=== PATIENT | female | born 1945 | race Caucasian/White ===

== ENCOUNTER 2018-01-23 16:27 | Observation (INO) | payer MEDICARE ==
[~2018-01-23] VITALS: Ht 162.6 cm; Wt 80.0 kg
[2018-01-23 16:35] VITALS: BP 158/81; PULSE 80; RESP 18; TEMP 98.8; O2SAT 98
--- NOTE | 2018-01-23 17:13 | RADRPT ---
EXAM DATE/TIME: 01/23/2018 17:08 [place] COMPARISON: No previous studies available for comparison. INDICATIONS : Chest pain. MEDICAL HISTORY : None. SURGICAL HISTORY : None. ENCOUNTER: Initial ACUITY: 2 days PAIN SCORE: 7/10 LOCATION: middle chest. FINDINGS: PA and lateral views of the chest demonstrate the lungs to be symmetrically aerated without evidence of mass, infiltrate or effusion. The cardiomediastinal contours are unremarkable. Osseous structure s are intact. CONCLUSION: No acute disease. Michael Shin MD on January 23, 2018 at 17:10 Board Certified Radiologist. This report was verified electronically.
[2018-01-23 19:06] LABS: AUTOMATED NEUTROPHIL # 5.6 TH/MM3 (1.8-7.7); BASOPHIL # 0.1 TH/MM3 (0-0.2); EOSINOPHIL # 0.1 TH/MM3 (0-0.4); EOSINOPHIL % 0.8 % (0.0-4.0); HEMATOCRIT 40.7 % (35.0-46.0); HEMOGLOBIN 13.8 GM/DL (11.6-15.3); LYMPH % 29.1 % (9.0-44.0); LYMPHOCYTE # 2.7 TH/MM3 (1.0-4.8); MEAN CORPUSCULAR HEMOGLOBIN 30.6 PG (27.0-34.0); MEAN PLATELET VOLUME 8.4 FL (7.0-11.0); MONO % 8.4 % (0.0-8.0); MONOCYTE # 0.8 TH/MM3 (0-0.9); NEUT % 60.7 % (16.0-70.0); PLATELET COUNT 215 TH/MM3 (150-450); RED BLOOD COUNT 4.52 MIL/MM3 (4.00-5.30); WHITE BLOOD COUNT 9.2 TH/MM3 (4.0-11.0)
[2018-01-23 19:14] LABS: BILIRUBIN, URINE NEG (NEG); BLOOD, URINE SMALL (NEG); GLUCOSE,URINE NEG (NEG); KETONE, URINE NEG (NEG); NITRITE,URINE NEG (NEG); SQUAMOUS EPITHELIAL CELL URINE 1 /hpf (0-5); URINE COLOR LIGHT-YELLOW (YELLW/STRAW); URINE LEUKOCYTE ESTERASE NEG (NEG)
[2018-01-23 19:27] LABS: ALKALINE PHOSPHATASE 90 U/L (45-117); TOTAL BILIRUBIN ADULT 0.6 MG/DL (0.2-1.0); TOTAL PROTEIN 7.9 GM/DL (6.4-8.2)
[2018-01-23 19:28] LABS: ALBUMIN 3.7 GM/DL (3.4-5.0); ALT (GPT) 19 U/L (10-53); AST (GOT) 16 U/L (15-37); BLOOD UREA NITROGEN 17 MG/DL (7-18); CALCIUM 9.4 MG/DL (8.5-10.1); CHLORIDE 110 MEQ/L (98-107); GLOMERULAR FILTRATION RATE 82 ML/MIN (>89); GLUCOSE,RANDOM 96 MG/DL (74-106); SODIUM (NA) 142 MEQ/L (136-145)
[2018-01-23] MEDS ORDERED: LEVO.125 PO (22:20)
[2018-01-23] MEDS ORDERED: TRAZ50TA12 PO (22:20)
[2018-01-23] MEDS ORDERED: XANA1TAB2 PO (22:20)
[2018-01-23] MEDS ORDERED: ACETAMINOPHEN 500 MG CPLT PO PRN (23:30)
[2018-01-23] MEDS ORDERED: ACETAMINOPHEN/HYDROcodone 325 MG/7.5 MG TAB PO PRN (23:30)
[2018-01-23] MEDS ORDERED: SODIUM CHLORIDE 0.9% FLUSH 10 ML FLUSH IV FLUSH PRN (23:30)
[2018-01-23] MEDS ORDERED: MORPHINE SULFATE 4 MG/ML INJ IV PUSH PRN (23:30)
--- NOTE | 2018-01-23 23:37 | PD ---
HPI Chief Complaint: Complaint Time Seen by Provider: 21:25 Travel History International Travel<30 days: No Contact w/Intl Traveler<30days: No Traveled to known affect area: No History of Present Illness HPI 72-year-old female complains of a kidney infection. She reports some pain in the right flank. She believes she also has a pneumonia and is dehydrated. Similar symptoms in the past were diagnosed as pneumonia and he UTI. The symptoms include cough back pain and retrosternal chest pain. She has no history of coronary artery disease. She denies diabetes hypertension hyperlipidemia. The patient does not smoke. Patient also reports urinary frequency. The patient additionally reports chest pain with exertion. Symptom duration has been about 2-3 days. PFSH Past Medical History Thyroid Disease: Yes ("HYPOTHYRODISM") Past Surgical History Abdominal Surgery: Yes ("HERNIA REPAIR") Cholecystectomy: Yes Hysterectomy: Yes Tonsillectomy: Yes Social History Alcohol Use: Yes ("OCC") Tobacco Use: No Substance Use: No Allergies-Medications (Allergen,Severity, Reaction): Coded Allergies: codeine (Unverified Adverse Reaction, Severe, Rash, 01/23/18) Reported Meds & Prescriptions Reported Meds & Active Scripts Active Reported Trazodone (Trazodone HCl) 50 Mg Tab 50 Mg PO HS Xanax (Alprazolam) 1 Mg Tab 1 Mg PO Q6H PRN Synthroid (Levothyroxine Sodium) 125 Mcg Tab 125 Mcg PO DAILY Review of Systems Except as stated in HPI: all other systems reviewed are Neg General / Constitutional: No: Fever Eyes: No: Diploplia Physical Exam Narrative GENERAL: 72 old female pleasant well-nourished well-developed no acute distress Vital Signs Date Time Temp Pulse Resp B/P (MAP) Pulse Ox O2 Delivery O2 Flow Rate FiO2 01/23/18 22:14 73 15 01/23/18 16:35 98.8 80 18 158/81 (106) 98 SKIN: Warm and dry. HEAD: Atraumatic. Normocephalic. EYES: Pupils equal and round. No scleral icterus. No injection or drainage. ENT: No nasal bleeding or discharge. Mucous membranes pink and moist. NECK: Trachea midline. No JVD. CARDIOVASCULAR: Regular rate and rhythm. RESPIRATORY: No accessory muscle use. Clear to auscultation. Breath sounds equal bilaterally. GASTROINTESTINAL: Abdomen soft, non-tender, nondistended. Hepatic and splenic margins not palpable. No flank tenderness to palpation. MUSCULOSKELETAL: Extremities without clubbing, cyanosis, or edema. No obvious deformities. NEUROLOGICAL: Awake and alert. No obvious cranial nerve deficits. Motor grossly within normal limits. Five out of 5 muscle strength in the arms and legs. Normal speech. PSYCHIATRIC: Appropriate mood and affect; insight and judgment normal. Data Data Last Documented VS Vital Signs Date Time Temp Pulse Resp B/P (MAP) Pulse Ox O2 Delivery O2 Flow Rate FiO2 01/23/18 22:14 73 15 01/23/18 16:35 98.8 158/81 (106) 98 Orders Orders Urinalysis - C+S If Indicated (01/23/18 16:42) Complete Blood Count With Diff (01/23/18 16:42) Comprehensive Metabolic Panel (01/23/18 16:42) Chest, Pa & Lat (01/23/18 16:42) Electrocardiogram (01/23/18 ) Troponin I (01/23/18 21:43) Troponin I (01/23/18 22:19) Activity Bed Rest With Brp (01/23/18 23:28) Vital Signs (Adult) Q4H (01/23/18 23:28) Cardiac Rhythm .As Directed (01/23/18:28) Notify Dr: Other .PRN (01/23/18 23:28) Notify DrMani Parameters (01/23/18:28) Resp Oxygen Nasal Cannula (01/23/18 ) Ckmb (Isoenzyme) Profile (01/23/18:28) Ckmb (Isoenzyme) Profile (01/24/18 02:28) Troponin I (01/23/18 23:28) Troponin I (01/24/18 02:28) Electrocardiogram (01/23/18 23:28) Electrocardiogram (01/24/18 02:28) ^ Obtain (01/23/18 23:) Sodium Chloride 0.9% Flush (Ns Flush) (01/23/18 23:30) Sodium Chloride 0.9% Flush (Ns Flush) (01/24/18 09:00) Acetaminophen (Tylenol) (01/23/18 23:30) Acetamin-Hydrocod 325-7.5 Mg ([place] 7.5 (01/23/18 23:30) Morphine Inj (Morphine Inj) (01/23/18 23:30) Pastry Chef / Telemetry LOUISE.Q8H (01/23/18 23:28) Admit Order (Ed Use Only) (01/23/18 23:28) Labs Laboratory Tests Test 01/23/18 16:45 01/23/18 18:18 01/23/18 22:25 Urine Color LIGHT-YELLOW Urine Turbidity CLEAR Urine pH 5.0 Urine Specific [place] 1.009 Urine Protein NEG mg/dL Urine Glucose (UA) NEG mg/dL Urine Ketones NEG mg/dL Urine Occult Blood SMALL Urine Nitrite NEG Urine Bilirubin NEG Urine Urobilinogen LESS THAN 2.0 MG/DL Urine Leukocyte Esterase NEG Urine RBC LESS THAN 1 /hpf Urine WBC LESS THAN 1 /hpf Urine Squamous Epithelial Cells 1 /hpf Microscopic Urinalysis Comment CULT NOT INDICATED White Blood Count 9.2 TH/MM3 Red Blood Count 4.52 MIL/MM3 Hemoglobin 13.8 GM/DL Hematocrit 40.7 % Mean Corpuscular Volume 90.0 FL Mean Corpuscular Hemoglobin 30.6 PG Mean Corpuscular Hemoglobin Concent 34.0 % Red Cell Distribution Width 14.0 % Platelet Count 215 TH/MM3 Mean Platelet Volume 8.4 FL Neutrophils (%) (Auto) 60.7 % Lymphocytes (%) (Auto) 29.1 % Monocytes (%) (Auto) 8.4 % Eosinophils (%) (Auto) 0.8 % Basophils (%) (Auto) 1.0 % Neutrophils # (Auto) 5.6 TH/MM3 Lymphocytes # (Auto) 2.7 TH/MM3 Monocytes # (Auto) 0.8 TH/MM3 Eosinophils # (Auto) 0.1 TH/MM3 Basophils # (Auto) 0.1 TH/MM3 CBC Comment DIFF FINAL Differential Comment Blood Urea Nitrogen 17 MG/DL Creatinine 0.70 MG/DL Random Glucose 96 MG/DL Total Protein 7.9 GM/DL Albumin 3.7 GM/DL Calcium Level 9.4 MG/DL Alkaline Phosphatase 90 U/L Aspartate Amino Transf (AST/SGOT) 16 U/L Alanine Aminotransferase (ALT/SGPT) 19 U/L Total Bilirubin 0.6 MG/DL Sodium Level 142 MEQ/L Potassium Level 3.6 MEQ/L Chloride Level 110 MEQ/L Carbon Dioxide Level 24.0 MEQ/L Anion Gap 8 MEQ/L Estimat Glomerular Filtration Rate 82 ML/MIN Troponin I LESS THAN 0.02 NG/ML MDM Medical Decision Making Medical Screen Exam Complete: Yes Emergency Medical Condition: Yes Medical Record Reviewed: Yes Differential Diagnosis NSTEMI, unstable angina, coronary vasospasm, PE, PTX, aortic dissection, pericarditis, myocarditis, endocarditis, PNA, esophageal disease, aneurysm, musculoskeletal etiologies, anxiety, cocaine/sympathomimetic abuse Narrative Course EKG shows left bundle-branch block pattern with a rate of 80 CBC & BMP Diagram 01/23/18 18:18 Total Protein 7.9, Albumin 3.7, Calcium Level 9.4, Alkaline Phosphatase 90, Aspartate Amino Transf (AST/SGOT) 16, Alanine Aminotransferase (ALT/SGPT) 19, Total Bilirubin 0.6 Troponin < 0.02 UA shows no UTI A chest x-ray shows no acute disease Patient will be kept in the chest pain center for further evaluation Diagnosis Primary Impression: Chest pain Qualified Codes: R07.9 - Chest pain, unspecified Admitting Information Admitting Physician Requests: Observation Emory Talyor MD Jan 23, 2018 23:37
[2018-01-24] VITALS (7 sets, daily range): BP systolic 137–167; BP diastolic 70–79; PULSE 66–77; RESP 16–18; TEMP 98.2–98.9; O2SAT 93–98
[2018-01-24 02:26] LABS: TROPONIN I LESS THAN 0.02 NG/ML (0.02-0.05)
[2018-01-24 05:42] LABS: TROPONIN I LESS THAN 0.02 NG/ML (0.02-0.05)
[2018-01-24] MEDS ORDERED: ONDANSETRON HCL 4 MG/2 ML VIAL IV PUSH PRN (08:00)
[2018-01-24] MEDS ORDERED: NITROGLYCERIN 0.4 MG SL 25 TABS/BTL SL PRN (08:00)
[2018-01-24] MEDS ORDERED: ACETAMINOPHEN 500 MG CPLT PO PRN (08:00)
[2018-01-24] MEDS ORDERED: ALPRAZolam 1 MG TAB PO PRN (08:45)
--- NOTE | 2018-01-24 08:45 | HHI.HP ---
HPI Primary Care Physician Primary Care Physician -[place], [place] Chief Complaint Chest tightness History of Present Illness 72 year old female with history of hypothyroidism and depression presents to ER for further evaluation of chest tightness. Her and her daughter are on visiting [place] until Sunday. They arrived Sunday from [place], [place]. Reports feeling "not herself" and states "I probably shouldn't took trip to [place]." Came to ER for further evaluation of increase urinary frequency, possible dehydration, and chest congestion. Endorses intermittent low grade fever, chills, chest congestion, and nonproductive cough. No dysuria or hematuria. No change in appetite and reports increasing her fluid intake this week. In regards to chest discomfort reports onset Sunday, before leaving to [place]. Location substernal. Characterizes as tightness. Severity mild to moderate. Radiation to right flank. Duration constant. No associated symptoms of nausea, vomiting, dyspnea, and diaphoresis. No known precipitating of relieving factors. Denies similar discomfort in the past. Review of Systems General: No fatigue,weakness, or change in appetite. Reports intermittent low grade fever, chills, and chest congestion since Sunday. HEENT: No KEN[place]ON, no vision changes, no nasal congestion or drainage, no dysphasia CV: Constant chest tightness as stated above. No pressure, palpitations, or dizziness. RESP: Nonproductive cough. No SOB, wheeze, or hemoptysis. GI: No nausea, vomiting, bowel changes, diarrhea, constipation, pain, distention , melena, or blood in the stool. : Current urinary frequency. No dysuria, urgency, or hematuria. History of kidney infection Summer 2016, reports hospitalization x4days. EXT: No lower leg edema, no paraesthesias MS: No injury, trauma, or change in ROM. NEURO: No difficulty with balance, LOC, or motor/sensory deficits PSYCH: History of both anxiety and depression, reports both stable on current medical regimen. SKIN: No rashes, no concerning lesions Past Family Social History Allergies: Coded Allergies: codeine (Unverified Adverse Reaction, Severe, Rash, 01/23/18) Past Medical History Hypothyroidism, depression, anxiety Past Surgical History Cholecystectomy, hysterectomy, tonsillectomy, hernia repair, back surgery Reported Medications Reported Meds & Active Scripts Active Reported Trazodone (Trazodone HCl) 50 Mg Tab 50 Mg PO HS Xanax (Alprazolam) 1 Mg Tab 1 Mg PO Q6H PRN Synthroid (Levothyroxine Sodium) 125 Mcg Tab 125 Mcg PO DAILY Active Ordered Medications Current Medications Medications (Trade) Dose Ordered Sig/Adarsh Route Start Time Stop Time Status Last Admin (NS Flush) 2 ml UNSCH PRN IV FLUSH 01/23/18 23:30 (NS Flush) 2 ml BID IV FLUSH 01/24/18 09:00 ([place] 7.5-325 Mg) 1 tab Q4H PRN PO 01/23/18 23:30 (Morphine Inj) 2 mg Q4H PRN IV PUSH 01/23/18 23:30 (Tylenol) 500 mg Q4H PRN PO 01/24/18 08:00 (Zofran Inj) 4 mg Q6H PRN IV PUSH 01/24/18 08:00 (Nitrostat Sl) 0.4 mg Q5M PRN SL 01/24/18 08:00 (Aspirin) 325 mg DAILY PO 01/24/18 09:00 Family History Noncontributory for early onset cardiovascular disease Social History No known coronary artery disease, hypertension, diabetes, or hyperlipidemia. Former smoker quitting over 30 years ago. Rare alcohol use. Denies any illegal drug use. . Endorses sedentary lifestyle. Past cardiac testing Reports Lexiscan 4-5 years ago reported to be unremarkable with possible "small area of blockage." Cardiac catheterization 10 years ago reported to be normal without any intervention required. Reports being told she has an abnormal EKG in the past. Physical Exam Vital Signs Vital Signs Date Time Temp Pulse Resp B/P (MAP) Pulse Ox O2 Delivery O2 Flow Rate FiO2 01/24/18 07:32 98.3 66 18 167/79 (108) 98 01/24/18 04:58 77 01/24/18 04:37 98.2 70 16 150/71 (97) 93 01/24/18 02:06 68 01/24/18 01:29 98.9 76 16 138/70 (92) 94 01/23/18 22:14 73 15 01/23/18 16:35 98.8 80 18 158/81 (106) 98 Physical Exam GENERAL: Alert WN, WD, NAD, pleasant, mildly obese, elderly female HEAD: NC, AT EYES: Sclera clear, conjunctiva without injection, pupils equal and round ENT: Mucous membranes pink and moist NECK: Supple, no masses, trachea midline CV: RRR, without murmur, rub, gallop, no JVD, S1-S2 no S3-S4. No carotid bruits. Chest wall tender with palpation, easily reproduced discomfort. RESP: Clear lungs throughout bilateral, no crackles, wheeze, rhonchi, symmetrical chest rise, nonlabored, able to speak in full sentences ABD: Soft, NT, ND, no masses, positive bowel tones BACK: Tenderness with light palpation to right upper flank. EXT: Pulses +24, no dependent edema MS: Normal tone 4 extremities, no obvious deformities, full range of motion NEURO: CN II through CN XII grossly intact, motor strength 5/5 PSYCH: A+O 3, flat affect, appropriate speech, mood, insight and judgment SKIN: Normal turgor, normal texture, no lesions, no rashes, even hair distribution Laboratory Laboratory Tests Test 01/23/18 16:45 01/23/18 18:18 01/23/18 22:25 01/24/18 01:48 Urine Color LIGHT-YELLOW Urine Turbidity CLEAR Urine pH 5.0 Urine Specific [place] 1.009 Urine Protein NEG Urine Glucose (UA) NEG Urine Ketones NEG Urine Occult Blood SMALL Urine Nitrite NEG Urine Bilirubin NEG Urine Urobilinogen LESS THAN 2.0 Urine Leukocyte Esterase NEG Urine RBC LESS THAN 1 Urine WBC LESS THAN 1 Urine Squamous Epithelial Cells 1 Microscopic Urinalysis Comment CULT NOT INDICATED White Blood Count 9.2 Red Blood Count 4.52 Hemoglobin 13.8 Hematocrit 40.7 Mean Corpuscular Volume 90.0 Mean Corpuscular Hemoglobin 30.6 Mean Corpuscular Hemoglobin Concent 34.0 Red Cell Distribution Width 14.0 Platelet Count 215 Mean Platelet Volume 8.4 Neutrophils (%) (Auto) 60.7 Lymphocytes (%) (Auto) 29.1 Monocytes (%) (Auto) 8.4 Eosinophils (%) (Auto) 0.8 Basophils (%) (Auto) 1.0 Neutrophils # (Auto) 5.6 Lymphocytes # (Auto) 2.7 Monocytes # (Auto) 0.8 Eosinophils # (Auto) 0.1 Basophils # (Auto) 0.1 CBC Comment DIFF FINAL Differential Comment Blood Urea Nitrogen 17 Creatinine 0.70 Random Glucose 96 Total Protein 7.9 Albumin 3.7 Calcium Level 9.4 Alkaline Phosphatase 90 Aspartate Amino Transf (AST/SGOT) 16 Alanine Aminotransferase (ALT/SGPT) 19 Total Bilirubin 0.6 Sodium Level 142 Potassium Level 3.6 Chloride Level 110 Carbon Dioxide Level 24.0 Anion Gap 8 Estimat Glomerular Filtration Rate 82 Troponin I LESS THAN 0.02 LESS THAN 0.02 Total Creatine Kinase 71 Test 01/24/18 04:50 Total Creatine Kinase 69 Troponin I LESS THAN 0.02 Result Diagram: 01/23/18 1818 01/23/18 1818 Imaging Last 48 hours Impressions Chest X-Ray 01/23/18 1642 Signed Impressions: Service Date/Time: Tuesday, January 23, 2018 17:08 - CONCLUSION: No acute disease. Michael Shin MD Course EKG NSR, Left bundle branch block Caprini VTE Risk Assessment Caprini VTE Risk Assessment: No/Low Risk (score <= 1) Caprini Risk Assessment Model Point Value = 1 Point Value = 2 Point Value = 3 Point Value = 5 Age 41-60 Minor surgery BMI > 25 kg/m2 Swollen legs Varicose veins or History of unexplained or recurrent spontaneous Oral contraceptives or hormone replacement Sepsis (< 1 month) Serious lung disease, including pneumonia (< 1 month) Abnormal pulmonary function Acute myocardial infarction Congestive heart failure (< 1 month) History of inflammatory bowel disease Medical patient at bed rest Age 61-74 Arthroscopic surgery Major open surgery (> 45 min) Laparoscopic surgery (> 45 min) Malignancy Confined to bed (> 72 hours) Immobilizing plaster cast Central venous access Age >= 75 History of VTE Family history of VTE Factor V Leiden Prothrombin [id number] Lupus anticoagulant Anticardiolipin antibodies Elevated serum homocysteine Heparin-induced thrombocytopenia Other congenital or acquired thrombophilia Stroke (< 1 month) Elective arthroplasty Hip, pelvis, or leg fracture Acute spinal cord injury (< 1 month) Prophylaxis Regimen Total Risk Factor Score Risk Level Prophylaxis Regimen 0-1 Low Early ambulation 2 Moderate Order ONE of the following: *Sequential Compression Device (SCD) *Heparin 5000 units SQ BID 3-4 Higher Order ONE of the following medications: *Heparin 5000 units SQ TID *Enoxaparin/Lovenox 40 mg SQ daily (WT < 150 kg, CrCl > 30 mL/min) *Enoxaparin/Lovenox 30 mg SQ daily (WT < 150 kg, CrCl > 10-29 mL/min) *Enoxaparin/Lovenox 30 mg SQ BID (WT < 150 kg, CrCl > 30 mL/min) AND/OR *Sequential Compression Device (SCD) 5 or more Highest Order ONE of the following medications: *Heparin 5000 units SQ TID (Preferred with Epidurals) *Enoxaparin/Lovenox 40 mg SQ daily (WT < 150 kg, CrCl > 30 mL/min) *Enoxaparin/Lovenox 30 mg SQ daily (WT < 150 kg, CrCl > 10-29 mL/min) *Enoxaparin/Lovenox 30 mg SQ BID (WT < 150 kg, CrCl > 30 mL/min) AND *Sequential Compression Device (SCD) Assessment and Plan Assessment and Plan #1 Atypical chest pain-admitted to chest pain center. Ruled out with 3 sets of EKGs, cardiac enzymes, monitor on telemetry overnight. Will be seen and evaluated by Dr. Dylan Barry. Discussed further recommendation to follow after evaluation by stone banker. Patient agreeable to plan of care. #2 History of anxiety-continue Xanax 1 mg every 6 hours when necessary #3 History of hypothyroidism-continue levothyroxine #4 Viral syndrome-Dr. Barry discussed using over the counter medications such as Robitussin and Aleve the next few days and to follow up with her PCP once returning to [place]. Tali Camacho Jan 24, 2018 08:45
[2018-01-24] MEDS ORDERED: SODIUM CHLORIDE 0.9% FLUSH 10 ML FLUSH IV FLUSH SCH (09:00)
[2018-01-24] MEDS ORDERED: LEVOTHYROXINE SODIUM 125 MCG TAB PO SCH (09:00)
[2018-01-24] MEDS ORDERED: ASPIRIN 325 MG TAB PO SCH (09:00)
--- NOTE | 2018-01-24 11:45 | HHI.DCPOC ---
Discharge Care Plan Diagnosis: (1) Atypical chest pain (2) Viral syndrome Goals to Promote Your Health * To prevent worsening of your condition and complications * To maintain your health at the optimal level Directions to Meet Your Goals Take your medications as prescribed Follow your dietary instruction Follow activity as directed Keep your appointments as scheduled Take your immunizations and boosters as scheduled If your symptoms worsen call your PCP, if no PCP go to Urgent Care Center or Emergency Room Smoking is Dangerous to Your Health. Avoid second hand smoke Call the 24-hour hour crisis hotline for domestic abuse at Tali Camacho Jan 24, 2018 11:45
--- NOTE | 2018-01-24 12:40 | EKG ---
Date Performed: 01/24/2018 Time Performed: 04:56:03 PTAGE: 72 years EKG: Sinus rhythm MARKED LEFT AXIS DEVIATION LEFT BUNDLE BRANCH BLOCK ABNORMAL ECG PREVIOUS TRACING : 01/24/2018 01.46 Since previous tracing, no significant change noted DOCTOR: Dylan Barry Interpretating Date/Time 01/24/2018 12:39:41
--- NOTE | 2018-01-24 12:41 | EKG ---
Date Performed: 01/24/2018 Time Performed: 01:46:46 PTAGE: 72 years EKG: Sinus rhythm MARKED LEFT AXIS DEVIATION LEFT BUNDLE BRANCH BLOCK ABNORMAL ECG PREVIOUS TRACING : 01/23/2018 22.04 Since previous tracing, no significant change noted DOCTOR: Dylan Barry Interpretating Date/Time 01/24/2018 12:40:48
--- NOTE | 2018-01-24 12:42 | EKG ---
Date Performed: 01/23/2018 Time Performed: 22:04:47 PTAGE: 72 years EKG: Sinus rhythm MARKED LEFT AXIS DEVIATION LEFT BUNDLE BRANCH BLOCK ABNORMAL ECG NO PREVIOUS TRACING DOCTOR: Dylan Barry Interpretating Date/Time 01/24/2018 12:42:01
== END 2018-01-24 14:00 | disposition home or self-care (01) ==
LOC: NEPD 16:27 → NEDA 23:30 → NEPGCP 01-24 00:36
PROVIDERS: ADMIT Internal Medicine Cardiovascular Disease; ATTEND Internal Medicine Cardiovascular Disease
DX: R07.89 Other chest pain (principal); E03.9 Hypothyroidism, unspecified; B34.9 Viral infection, unspecified; I44.7 Left bundle-branch block, unspecified; R94.31 Abnormal electrocardiogram [ECG] [EKG]; R05 Cough; R50.9 Fever, unspecified; F41.9 Anxiety disorder, unspecified; F32.9 Major depressive disorder, single episode, unspecified; Z79.899 Other long term (current) drug therapy; Z87.891 Personal history of nicotine dependence
CPT/HCPCS: 71046; 80053; 81001; 82550; 84484; 85025; 93005; G0378